=== PATIENT | female | born 1950 | race Two or more races ===

== ENCOUNTER → 2018-11-12 | Outpatient (CLI) | payer OTHER, BC | LOC: FIMAGING 13:39 | PROVIDERS: ATTEND Internal Medicine | DX: Z13.820 Encounter for screening for osteoporosis (principal); M81.0 Age-related osteoporosis without current pathological fracture; Z78.0 Asymptomatic menopausal state; Z85.850 Personal history of malignant neoplasm of thyroid ==

== ENCOUNTER → 2019-02-15 | Outpatient (CLI) | payer OTHER, BC ==
[~2019-02-15] MED LIST: IOPAMIDOL (ISOVUE-300) 100 ML BTL ONE
== END ==
LOC: FIMAGING 11:51
PROVIDERS: ATTEND Urology
DX: N28.89 Other specified disorders of kidney and ureter (principal)
CPT/HCPCS: 74170; Q9967; 82565-PO